=== PATIENT | male | born 1995 | race Caucasian/White ===

== ENCOUNTER 2018-03-05 12:35 | Emergency (ER) | payer MEDICAID ==
[~2018-03-05] VITALS: Ht 180.3 cm; Wt 67.0 kg
[2018-03-05 12:44] VITALS: BP 118/73
[2018-03-05] MEDS ORDERED: LIDOCAINE 2% 100MG/5ML SYRINGE ONE (13:22)
[2018-03-05] MEDS ORDERED: LIDOCAINE-MPF 2% ,5ML ONE (13:25)
== END 2018-03-05 14:04 | disposition home or self-care (01) ==
LOC: ED 14:03
DX: S61.212A Laceration without foreign body of right middle finger without damage to nail, initial encounter (principal); W18.02XA Striking against glass with subsequent fall, initial encounter; Y93.89 Activity, other specified; Y99.8 Other external cause status; Y92.009 Unspecified place in unspecified non-institutional (private) residence as the place of occurrence of the external cause
CPT/HCPCS: 12041; 99284